=== PATIENT | female | born 1955 | race Caucasian/White ===

== ENCOUNTER 2021-05-09 16:15 | Outpatient (RCR) | payer BC, SELFPAY ==
--- NOTE | 2021-03-31 17:42 | PTOPEVAL ---
PHYSICAL THERPAY EVALUATION AND PLAN OF CARE Thank you for referring Katharina Carrington to [facility].? The patient is scheduled to be seen for therapy? 1x/week for 5 weeks. Please review, sign, date and return this plan of care ELIEL. I agree with and certify that the following plan of care is medically necessary. Referring Physician Date Referring Provider: Mirlande Wilkinson Evaluation Diagnosis mechanical low back pain Subjective Information Chronic low back pain. history Query Text:As Reported By Patient/ of pinched nerve and ablasion Family (2 years ago). She participated in physical therapy 3 year ago without success (states made it worse) . She has a 10-12 year history of low back pain that was fairly consistent until 3 years ago when it started to worsen and she strated getting therapy at that time. Is also participating in pain management where they did nerve blocks. Self Report Pain Assessment Spine, Lumbar Reported Pain Level 5 Pain Description Tightness Pain Radiation Left Leg Pain Frequency Chronic,Continuous Pain Score Pain Score 5: Self Report Interventions Used Interventions Used By Clinicians Exercise,Manual Therapy Techniques Pain Relief Interventions Used By Medication Patient Other Alleviating Interventions anti-inflammatory; extra- strength tylenol Cervical and Lumbar ROM Lumbar ROM Lumbar Flexion Active Floor Query Text:Hands to: Lumbar Comments generally functional ROM; limited extension with hinging at L2 Lower Extremity Range of Motion General Lower Extremity Range of Motion Gross Lower Extremity Range of Motion generally WNL; left knee Comments limited in flexion and extension end ranges with knee pain; right ankle severely limited in dorsiflexion and plantar flexion secondary to ORIF Lower Extremity Muscle Strength Testing Hip Strength Bilateral Hip Flexion Strength 5 Normal Hip Extension Strength 3+ Fair + Hip Abduction Strength 3+ Fair + Hip Medial Rotation Strength 4+ Good + Hip Lateral Rotation Strength 4+ Good + Knee Strength Bilateral Knee
--- NOTE | 2021-05-09 16:48 | PTOPEVAL ---
PHYSICAL THERAPY DISCHARGE NOTE Thank you for referring Katharina Carrington to [facility].? Please review, sign, date and return this plan of care ELIEL. I agree with and certify that the following plan of care is medically necessary. Referring Physician Date Referring Provider: Mirlande Wilkinson Discharge Diagnosis mechanical low back pain Subjective Information reports that she recognizes Query Text:As Reported By Patient/ the benefits of stretching and Family HEP. Notes that she needs to get her left knee replaced and thinks that will help her symptoms. Is also participating in pain management where they did nerve blocks. Self Report Pain Assessment Spine, Lumbar Reported Pain Level 3 Pain Description Tightness Pain Radiation Left Leg Pain Frequency Chronic,Continuous Pain Score Pain Score 3: Self Report Interventions Used Interventions Used By Clinicians Exercise,Manual Therapy Techniques Pain Relief Interventions Used By Medication Patient Other Alleviating Interventions anti-inflammatory; extra- strength tylenol Cervical and Lumbar ROM Lumbar ROM Lumbar Flexion Active Floor Query Text:Hands to: Lumbar Comments generally functional ROM; lumbar extension improving despite Lower Extremity Muscle Strength Testing Hip Strength Bilateral Hip Flexion Strength 5 Normal Hip Extension Strength 4 Good Hip Abduction Strength 4 Good Hip Medial Rotation Strength 4+ Good + Hip Lateral Rotation Strength 4+ Good + Knee Strength Bilateral Knee Flexion Strength 5 Normal Knee Extension Strength 5 Normal Palpation Assessment Palpation Palpation moderate tightness and trigger points to left QL and paraspinals; General Exercise General Exercises Side Bilateral Exercise Location hips Exercise Type Active,Resistive,Stretching Exercise Description -s/l hip abduction x15 each Query Text:Record Sets, Reps, side 2# Resistance, and Position -prone hip extension with knee flexed x15 each side 2# -figure 4 unilateral bridge -single leg sit<>stand at elevated table x10 each side Manual Therapy Manual Therapy Phan
== END 2021-05-11 14:44 | disposition home or self-care (01) ==
LOC: ANHPT 16:15
DX: M54.16 Radiculopathy, lumbar region (principal)
CPT/HCPCS: 97110; 97140; 97163

== ENCOUNTER 2022-05-08 16:00 | Outpatient (RCR) | payer MEDICARE, SELFPAY ==
--- NOTE | 2022-04-05 17:10 | PTOPEVAL ---
PHYSICAL THERAPY EVALUATION AND PLAN OF CARE Thank you for referring Katharina Carrington to [facility].? The patient is scheduled to be seen for therapy? 1x/week for 5-10 weeks. Please review, sign, date and return this plan of care ELIEL. I agree with and certify that the following plan of care is medically necessary. Referring Physician Date Attending Provider: Supa Dalton Diagnosis left knee pain Onset chronic Subjective Information has left knee pain, chronic. Query Text:As Reported By Patient/ Has a complaint of chronic Family left knee pain with limited ROM. 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 Has opted out of knee replacement. Is generally able to do what she wants and will have pain after . She really does want to increase her knee ROM. Self Report Pain Assessment Left Knee(s) Reported Pain Level 3 Pain Description Aching,Tightness Pain Frequency Chronic,Continuous Greatest Pain Intensity 7 Lower Extremity Range of Motion Knee Range of Motion Left Knee Flexion Range of Motion - Active 122 Knee Extension Range of Motion - Active 0 Query Text: Lower Extremity Muscle Strength Testing Hip Strength Left Hip Flexion Strength 5 Normal Hip Extension Strength 4- Good - Hip Abduction Strength 4- Good - Knee Strength Left Knee Flexion Strength 5 Normal Knee Extension Strength 4+ Good + Knee Strength Comments fair quad set; fair eccentric quad control Palpation increased tension and thickening to left quadriceps; fair to good patellar PT Clinical Summary Katharina is a 66 yo female presenting to outpatient physical therapy with chronic left knee pain with a goal to increase her left knee ROM. She demonstrates limited left knee flexion and fair quad activation and motor control. She would benefit from skilled physical therapy to address these findings and provide her with HEP.
--- NOTE | 2022-04-17 16:27 | PCPTNOTE ---
Patient did not show up for scheduled appointment this date; Called and left voicemail reminding patient on next scheduled appointment 04/25 @ 16:15
--- NOTE | 2022-05-08 16:16 | PTOPEVAL ---
PHYSICAL THERAPY DISCHARGE NOTE Thank you for referring Katharina Carrington to [facility].? Please review, sign, date and return this plan of care ELIEL. I agree with and certify that the following plan of care is medically necessary. Referring Physician Date Attending Provider: Supa Dalton Diagnosis left knee pain Onset chronic Subjective Information feels that her ROM is Query Text:As Reported By Patient/ improving, which was her main Family goal. Pain is not really improving but she attributes that to using the knee more. Self Report Pain Assessment Left Knee(s) Reported Pain Level 2 Knee Range of Motion Left Knee Flexion Range of Motion - Active 130 Knee Extension Range of Motion - Active 0 Query Text: Lower Extremity Muscle Strength Testing Hip Strength Left Hip Flexion Strength 5 Normal Hip Extension Strength 5 Normal Hip Abduction Strength 5 Normal Knee Strength Left Knee Flexion Strength 5 Normal Knee Extension Strength 5 Normal Knee Strength Comments good quad set; good eccentric quad control Protocol: PTEVCODE PT Clinical Summary Katharina is a 66 yo female presenting to outpatient physical therapy with chronic left knee pain with a goal to increase her left knee ROM. She demonstrates 8deg further knee flexion today, which is a significant improvement. She also demonstrates improved quadriceps control and strength which will benefit in reduce pain and increasing function. We will d/c from PT at this time. she is independent in HEP.
== END 2022-05-09 16:07 | disposition home or self-care (01) ==
LOC: ANHPT 16:00
DX: M17.12 Unilateral primary osteoarthritis, left knee (principal)
CPT/HCPCS: 97110; 97140; 97162; 97530